=== PATIENT | male | born 1965 | race Caucasian/White ===

== ENCOUNTER 2016-03-10 19:32 | Emergency (ER) | payer MEDICARE, OTHER ==
--- NOTE | 2016-03-10 20:19 | ED Physician Documentation ---
General Adult - HISTORIAN Historian: patient, other (caretakers) - HPI Stated Complaint: right lower leg blister, swollen, painful Chief Complaint: General Adult Additional Information: Right leg red and swollen with blister. Care takers just noted this today. Patient says it everett sbeen there longer. Resident of [facility], a care home. Also has blisters on tongue. - ROS CONST: other (eating as usual). denies: fever - PAST HX Past History: other (DINO, Obese, Intermittent explosive disorder, seizures, hypothyrodi ) Allergies/Adverse Reactions: Allergies Allergy/AdvReac Type Severity Reaction Status Date / Time Penicillins Allergy Verified 03/10/16 19:57 Home Medications: Ambulatory Orders Medication Instructions Recorded Albuterol Sulfate [Proair HFA] 1 each D 04/05/15 Naproxen [Naprosyn] 500 mg D 04/05/15 Quetiapine Fumarate [Seroquel] 200 mg PO BID 04/05/15 Acetaminophen [Tylenol Extra 500 mg PO TID PRN 04/10/15 Strength] Albuterol Sulfate [Proair HFA] 2 inh IH QID PRN 04/10/15 Budesonide/Formoterol Fumarate 2 puff IH BID 04/10/15 [Symbicort 80-4.5 Mcg Inhaler] FLUoxetine HCL [Prozac] 20 mg PO QD 04/10/15 Lamotrigine [Lamictal] 200 mg PO BID 04/10/15 Levothyroxine Sodium [Levoxyl] 88 mcg PO 07 04/10/15 Loratadine [Claritin] 10 mg PO D 04/10/15 Mometasone Furoate [Nasonex] 17 gm NS D 04/10/15 Montelukast Sodium [Singulair] 10 mg PO D 04/10/15 Omeprazole [Prilosec] 40 mg PO D 04/10/15 - SOCIAL HX Smoking History: non-smoker - FAMILY HX Family History: No - VITAL SIGNS Vital Signs: Vital Signs Temp Pulse Resp BP Pulse Ox 97.7 F 110 H 16 110/70 94 03/10/16 19:42 03/10/16 19:42 03/10/16 19:42 03/10/16 19:42 03/10/16 19:42 - REVIEWED ASSESSMENTS Nursing Assessment Reviewed: Yes Vitals Reviewed: Yes ED Results Lab/Radiology - Orders Orders: ED Orders Category Date Time Status Place Saline Lock/IV Now Care 03/10/16 19:54 Active BLOOD CULTURE Stat Lab 03/10/16 Ordered CBC/PLATELET/DIFF Routine Lab 03/10/16 20:11 Received CMP Routine Lab 03/10/16 20:10 Received PT-INR Routine Lab 03/10/16 20:10 Received URINALYSIS Routine Lab 03/10/16 Ordered General Adult Physical Exam - PHYSICAL EXAM GENERAL APPEARANCE: no distress EENT: eye inspection normal, ENT inspection normal, pharynx normal (Mallampati 3 /4), other (Erosions jama distal superior surface of tongue, 1-1.25 cm diameter. Foul smelling breath. ) NECK: supple RESPIRATORY: no resp distress, breath sounds normal CVS: reg rate & rhythm, heart sounds normal, equal pulses (feet) RECTAL: deferred SKIN: other (Right leg red, hot to touch, from 10 cm above knee to tips of toes. Serous fluid leaking from right lower leg. 6-3 cm blister mid ant right tibia. Denali peel textur of lower leg skin. ) EXTREMITIES: edema (see above) NEURO: CN's nml as tested, motor nml, sensation nml Discharge Clincal Impression: Cellulitis of right leg Home Medications: Ambulatory Orders Albuterol Sulfate [Proair HFA] 1 each D 04/05/15 Naproxen [Naprosyn] 500 mg D 04/05/15 Quetiapine Fumarate [Seroquel] 200 mg PO BID 04/05/15 Acetaminophen [Tylenol Extra Strength] 500 mg PO TID PRN 04/10/15 Albuterol Sulfate [Proair HFA] 2 inh IH QID PRN 04/10/15 Budesonide/Formoterol Fumarate [Symbicort 80-4.5 Mcg Inhaler] 2 puff IH BID FLUoxetine HCL [Prozac] 20 mg PO QD 04/10/15 Lamotrigine [Lamictal] 200 mg PO BID 04/10/15 Levothyroxine Sodium [Levoxyl] 88 mcg PO 07 04/10/15 Loratadine [Claritin] 10 mg PO D 04/10/15 Mometasone Furoate [Nasonex] 17 gm NS D 04/10/15 Montelukast Sodium [Singulair] 10 mg PO D 04/10/15 Omeprazole [Prilosec] 40 mg PO D 04/10/15 Condition: Fair Disposition: 02 XFER SHT-TRM HOSP Decision to Admit: NO Decision Time: 20:50
[2016-03-10 20:32] LABS: eGFR (African) > 60; eGFR (Non-African) > 60
[2016-03-10 20:37] LABS: BASOPHILS % 0.2 (0.0-1.5); EOSINOPHILS % 1.1 % (0.0-6.8); LYMPHOCYTES # 0.8 # k/uL (0.6-4.0); MEAN CORPUSCULAR HEMOGLOBIN 32.8 pg (28.0-34.0); MONOCYTES # 0.3 # k/uL (0.0-0.9); MONOCYTES % 2.1 % (0.0-11.0); NEUTROPHILS # 13.5 # k/uL (1.4-7.7)
[2016-03-10] MEDS ORDERED: cefTRIAXone SODIUM ADVANTAGE 1 GM in NORMAL SALINE ADD-VANTAGE 50 ML IV ONE (20:46)
[2016-03-10] MEDS ORDERED: cefTRIAXone SODIUM 1 GM VIAL ONE (20:50)
[2016-03-10] MEDS ORDERED: 0.9 % SODIUM CHLORIDE 100 ML IV ONE (20:50)
[2016-03-10] MEDS ORDERED: 0.9 % SODIUM CHLORIDE 1,000 ML IV ONE ×2 (20:55)
[2016-03-10 22:03] VITALS: BP 121/67
== END 2016-03-10 21:10 | disposition short-term general hospital (02) ==
LOC: ED 19:32
DX: L03.115 Cellulitis of right lower limb (principal)
CPT/HCPCS: 80053; 85025; 85610; J0696; J7030; 87040; 96365; 99283; 99284; S1016

== ENCOUNTER 2016-08-03 16:25 | Emergency (ER) | payer MEDICARE, OTHER ==
[2016-08-03 17:01] LABS: EOSINOPHILS % 0.1 % (0.0-6.8); MEAN CORPUSCULAR HEMOGLOBIN 32.1 pg (28.0-34.0); MEAN CORPUSCULAR VOLUME 96.3 fl (80.0-100.0); MONOCYTES % 4.8 % (0.0-11.0)
[2016-08-03] MEDS: MAG HYDROX/AL HYDROX/SIMETH 30 ML, Lidocaine 2%Visc 15ml 20 MG, PHENobarb/HYOSCY/ATROPI... PO ONE ×3 (17:10)
[2016-08-03] MEDS: ONDANSETRON HCL/PF 4 MG/ 2ML VIAL IVP ONE ×3 (17:10→20:10)
[2016-08-03] MEDS ORDERED: Lidocaine 2%Visc 15ml 20 MG/ML UDC ONE (17:12)
[2016-08-03] MEDS ORDERED: MAG HYDROX/AL HYDROX/SIMETH 30 ML UDC PO ONE (17:12)
[2016-08-03] MEDS ORDERED: 0.9 % SODIUM CHLORIDE 1,000 ML IV ONE (17:13)
[2016-08-03 17:17] LABS: eGFR (African) > 60; eGFR (Non-African) > 60
[2016-08-03] MEDS: 0.9 % SODIUM CHLORIDE 1,000 ML IV SCH (17:20)
[2016-08-03 17:28] LABS: BASOPHILS % 0.1 (0.0-1.5)
--- NOTE | 2016-08-03 17:47 | Diagnostic Imaging Report ---
MARIA DOLORES TAVERAS [facility] [address] [facility] [address] [place], [place]. [address] Report Submission Date: Aug 03, 2016 5:33:54 PM CDT Patient Study Name: ALCIDES MEZA Date: Aug 03, 2016 5:09:39 PM CDT Modality Type: CR Gender: M Description: CHEST,ABDOMEN : 65 Institution: [facility] Physician: MARIA DOLORES TAVERAS Chest and obstructive series, total 4 views Clinical history: Chest and abdominal pain Mild cardiomegaly with bibasilar discoid atelectasis. mild colonic ileus without dilated small bowel loops or free air. Impression: Mild cardiomegaly with bibasilar atelectasis and possibly small bibasilar infiltrates Mild colonic ileus without dilated small bowel loops No free air Electronically signed on Aug 03, 2016 5:33:54 PM CDT by: Kenneth FIERRO
[2016-08-03] MEDS: fentaNYL CITRATE/PF 100 MCG/ 2ML AMP IVP ONE (18:24)
[2016-08-03] MEDS: fentaNYL 50 MCG PATCH TD SCH (20:11)
--- NOTE | 2016-08-03 20:16 | ED Physician Documentation ---
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 denies: joint pain, leg swelling, rash, swollen glands - SOCIAL HX Smoking History: non-smoker Alcohol Use: none Drug Use: none - FAMILY HX Family History: no significant history - PAST HX Past History: other (mild mental retaardation gerd hypothryoid seizures asthma gerrd ) Surgeries/Procedures: other (hernia) - REVIEWED ASSESSMENTS Nursing Assessment Reviewed: Yes Vitals Reviewed: Yes <Enmanuel Webster - Last Filed: 08/03/16 19:18> - HPI Stated Complaint: abd pain Context: other (none) <Monico Villegas - Last Filed: 08/03/16 20:15> - HPI Additonal Information: abd pain n/e onset last noct ate at [employer] yesterday w/hx over eating frequently claims no bm today or yesterday (Enmanuel Webster) - PAST HX Home Medications: Ambulatory Orders Medication Instructions Recorded Albuterol Sulfate [Proair HFA] 1 each D 04/05/15 Naproxen [Naprosyn] 500 mg D 04/05/15 Quetiapine Fumarate [Seroquel] 200 mg PO BID 04/05/15 Acetaminophen [Tylenol Extra 500 mg PO TID PRN 04/10/15 Strength] Albuterol Sulfate [Proair HFA] 2 inh IH QID PRN 04/10/15 Budesonide/Formoterol Fumarate 2 puff IH BID 04/10/15 [Symbicort 80-4.5 Mcg Inhaler] FLUoxetine HCL [Prozac] 20 mg PO QD 04/10/15 Lamotrigine [Lamictal] 200 mg PO BID 04/10/15 Levothyroxine Sodium [Levoxyl] 88 mcg PO 07 04/10/15 Loratadine [Claritin] 10 mg PO D 04/10/15 Mometasone Furoate [Nasonex] 17 gm NS D 04/10/15 Montelukast Sodium [Singulair] 10 mg PO D 04/10/15 Omeprazole [Prilosec] 40 mg PO D 04/10/15 Allergies/Adverse Reactions: Allergies Allergy/AdvReac Type Severity Reaction Status Date / Time Penicillins Allergy Verified 08/03/16 17:10 - VITAL SIGNS Vital Signs: Vital Signs Temp Pulse Resp BP Pulse Ox 98.9 F 102 H 28 H 130/69 92 08/03/16 16:25 08/03/16 16:25 08/03/16 16:25 08/03/16 16:25 08/03/16 16:25 Progress <Enmanuel Webster - Last Filed: 08/03/16 19:18> - EKG/XRAY/CT EKG: NSR (HR=91; non-specific T-wave changes; possible LVH by voltage.) <Monico Villegas - Last Filed: 08/03/16 20:15> - Results/Orders Results/Orders: care mis ROYER 1948 hrs-report to him (Enmanuel Webster) - Progress Progress: pt lab came back hik wbc amylase dilated bowel loops-l;arge intestine-called DR CAMACHO she requested ct abdomen to r/o abscess et al---ordered (Enmanuel Webster) Chest and obstructive series, total 4 views: Mild cardiomegaly with bibasilar atelectasis and possibly small bibasilar infiltrates; Mild colonic ileus without dilated small bowel loops; No free air. CT abdomen: 1. Acute pancreatitis without evidence of peripancreatic loculated fluid collections or pancreatic necrosis. 2. Gallbladder distension and probable gallbladder wall thickening may indicate acute cholecystitis. 3. Probable right pericardial cyst. 4. Hepatomegaly. 5. Opacities in the lung bases may represent scarring, atelectasis, and/or pneumonia. There are also trace bilateral pleural effusions. In ER GI cocktail NS 1 L NS Zofran 4 mg IV x 2 Fentanyl 50 mcg x 2 Ancef 1 gm IV Transfer to Hosp. Dr. Reed. (Monico Villegas) Abdominal Pain Physical Exam - Physical Exam General Appearance: mild distress, moderate distress EENT: eye inspection normal NECK: normal inspection RESPIRATORY: no resp distress, breath sounds normal CVS: reg rate & rhythm, heart sounds normal ABDOMEN: soft, tenderness (mild generalized) SKIN: normal color. No: cyanosis, diaphoresis, jaundice EXTREMITIES: non-tender, normal range of motion (pt amb well on own) NEURO: oriented X3, motor nml, sensation nml, mood/affect nml, cognition normal (pts speect demeanor compatible w/ mild MR) <Enmanuel Webster - Last Filed: 08/03/16 19:18> Discharge <Enmanuel Webster - Last Filed: 08/03/16 19:18> Decision to Admit: NO Decision Time: 20:14 <Monico Villegas - Last Filed: 08/03/16 20:15> Clincal Impression: possible acute cholecystitis, possibe pneumonia, possible ileus, elevated wbc, elevated LFTs Pancreatitis Qualifiers: Chronicity: acute Pancreatitis type: unspecified pancreatitis type Acute pancreatitis complication: unspecified Qualified Code(s): K85.90 - Acute pancreatitis without necrosis or infection, unspecified Referrals: Kenneth Garner [Primary Care Provider] - 2 Days Home Medications: Ambulatory Orders Albuterol Sulfate [Proair HFA] 1 each D 04/05/15 Naproxen [Naprosyn] 500 mg D 04/05/15 Quetiapine Fumarate [Seroquel] 200 mg PO BID 04/05/15 Acetaminophen [Tylenol Extra Strength] 500 mg PO TID PRN 04/10/15 Albuterol Sulfate [Proair HFA] 2 inh IH QID PRN 04/10/15 Budesonide/Formoterol Fumarate [Symbicort 80-4.5 Mcg Inhaler] 2 puff IH BID FLUoxetine HCL [Prozac] 20 mg PO QD 04/10/15 Lamotrigine [Lamictal] 200 mg PO BID 04/10/15 Levothyroxine Sodium [Levoxyl] 88 mcg PO 07 04/10/15 Loratadine [Claritin] 10 mg PO D 04/10/15 Mometasone Furoate [Nasonex] 17 gm NS D 04/10/15 Montelukast Sodium [Singulair] 10 mg PO D 04/10/15 Omeprazole [Prilosec] 40 mg PO D 04/10/15 Condition: Stable Disposition: XFER SHT-TRM HOSP
[2016-08-03] MEDS: ceFAZolin SODIUM 1 GM in 0.9 % SODIUM CHLORIDE 50 ML IV ONE (20:21)
[2016-08-03 20:47] VITALS: BP 124/78
--- NOTE | 2016-08-04 03:50 | Diagnostic Imaging Report ---
MARIA DOLORES TAVERAS~ [facility] [address] [facility] [place], [place]. [address] ~ ~ ~ ~ Report Submission Date: Aug 03, 2016 7:15:39 PM CDT Patient ~ Study Name: ALCIDES MEZA ~ Date: Aug 03, 2016 6:46:04 PM CDT ~ Modality Type: CT\SR Gender: M ~ Description: CT ABD & PELVIS W/ CON : 65 ~ Institution: [facility] Physician: MARIA DOLORES TAVERAS ~ ~ ~ ~ HISTORY: ~ 51-year-old male with abdominal pain, possible pancreatitis. COMPARISON: Radiographs from earlier same day TECHNIQUE: ~Helical CT images of the abdomen and pelvis were performed with 87 ml Omnipaque IV contrast. ~Sagittal and coronal reformatted images were obtained. FINDINGS: CT abdomen: ~Probable right pericardial cyst. ~There are infiltrates in the lung bases, greater on the left. ~There are trace bilateral pleural effusions. ~ The gallbladder is distended with probable gallbladder wall thickening. ~There is a small amount of fluid around the pancreas, without evidence of pancreatic necrosis. ~No intra or extrahepatic biliary ductal dilatation. ~The liver to 21 cm cephalocaudal. ~The spleen, kidneys, and adrenal glands are unremarkable. ~ No abdominal aortic aneurysm. ~ CT pelvis: ~No abnormal bowel dilatation, free air, free fluid, or suspicious adenopathy. ~The appendix and urinary bladder are normal in appearance. ~There is lumbar degenerative disc disease and facet arthropathy. IMPRESSION: 1. ~Acute pancreatitis without evidence of peripancreatic loculated fluid collections or pancreatic necrosis. 2. ~Gallbladder distension and probable gallbladder wall thickening may indicate acute cholecystitis. 3. ~Probable right pericardial cyst. 4. ~Hepatomegaly. 5. ~Opacities in the lung bases may represent scarring, atelectasis, and/or pneumonia. ~There are also trace bilateral pleural effusions. ~ Electronically signed on Aug 03, 2016 7:15:39 PM CDT by: Abraham FIERRO
== END 2016-08-03 20:30 | disposition short-term general hospital (02) ==
LOC: ED 16:25
DX: K85.90 Acute pancreatitis without necrosis or infection, unspecified (principal)
CPT/HCPCS: 74022; 74177; 80053; 82150; 83880; 84484; 85025; 93005; A9270; J0690; J2405; J3010; J7030; Q9966; 96361; 96372; 96375; 96376; 99284; S1016

== ENCOUNTER 2017-07-18 21:47 | Emergency (ER) | payer MEDICARE, OTHER ==
[2017-07-18 22:21] LABS: BASOPHILS % 0.4 (0.0-1.5); MEAN CORPUSCULAR HEMOGLOBIN 31.7 pg (28.0-34.0); MEAN CORPUSCULAR VOLUME 99.3 fl (80.0-100.0); MONOCYTES % 4.1 % (0.0-11.0); NEUTROPHILS # 8.8 # k/uL (1.4-7.7)
[2017-07-18] MEDS ORDERED: KETOROLAC TROMETHAMINE 30 MG/1ML VIAL IVP ONE (22:22)
[2017-07-18 22:49] LABS: eGFR (African) > 60; eGFR (Non-African) > 60
--- NOTE | 2017-07-18 23:19 | ED Physician Documentation ---
Chest Pain - HISTORIAN Historian: patient - HPI Stated Complaint: chest pain Chief Complaint: Chest Pain Additional Information: left sided pectoral pain started today Onset: hours (5) Timing: sudden onset Duration: sudden-onset Last known Well Date: 07/18/17 Last Known Well Time: 05:00 Context: activity Severity: moderate Quality: aching Chest Pain Radiation: no radiation Chest Pain Signs/Symptoms: denies: nausea, vomiting, diaphoresis, cool extremities, dizziness, dyspnea, tachypnea, tachycardia, hypotension, palpitations, weakness Worsened By: movement Relieved By: nothing Further Comments: no - ROS CONST: none MS/LYMPH: none GI/: abdominal pain (left upper quadrant pain helped by pepto bismol) EYES/ENT: none SKIN/ENDO: none NEURO/PSYCH: none - PAST HX PR risk factors: no pertinent history DVT/PE Risk Factors: none TAD/AAA risk factors: none Neuro deficit: none GI disease: none Lung disease: asthma Immunizations: referred to PCP Allergies/Adverse Reactions: Allergies Allergy/AdvReac Type Severity Reaction Status Date / Time Penicillins Allergy Verified 07/18/17 22:59 Home Medications: Ambulatory Orders Medication Instructions Recorded Albuterol Sulfate [Proair HFA] 1 each D 04/05/15 Naproxen [Naprosyn] 500 mg D 04/05/15 Quetiapine Fumarate [Seroquel] 200 mg PO BID 04/05/15 Acetaminophen [Tylenol Extra 500 mg PO TID PRN 04/10/15 Strength] Albuterol Sulfate [Proair HFA] 2 inh IH QID PRN 04/10/15 Budesonide/Formoterol Fumarate 2 puff IH BID 04/10/15 [Symbicort 80-4.5 Mcg Inhaler] FLUoxetine HCL [Prozac] 20 mg PO QD 04/10/15 Lamotrigine [Lamictal] 200 mg PO BID 04/10/15 Levothyroxine Sodium [Levoxyl] 88 mcg PO 07 04/10/15 Loratadine [Claritin] 10 mg PO D 04/10/15 Mometasone Furoate [Nasonex] 17 gm NS D 04/10/15 Montelukast Sodium [Singulair] 10 mg PO D 04/10/15 Omeprazole [Prilosec] 40 mg PO D 02/29/16 - SOCIAL HX Smoking History: non-smoker Alcohol Use: none Drug Use: none - FAMILY HX Family HX: none - VITAL SIGNS Vital Signs: Vital Signs Temp Pulse Resp BP Pulse Ox 98.9 F 90 18 90/56 96 07/18/17 21:48 07/18/17 21:48 07/18/17 21:48 07/18/17 21:48 07/18/17 21:48 - REVIEWED ASSESSMENTS Nursing Assessment Reviewed: Yes Vitals Reviewed: Yes Progress - Results/Orders Results/Orders: bmp, cbc, trop, ekg ordered - Progress Progress: Pt. given 30 mg Toradol IVP in ER Critical Care Note - Critical Care Note Total Time (mins): 0 ED Results Lab/Radiology - Lab Results Lab Results: Lab Results 07/18/17 07/18/17 07/18/17 22:11 22:11 22:11 WBC 10.90 K/ul K/ul (4.00-12.00) RBC 3.87 M/ul L M/ul (3.90-5.20) Hgb 12.3 g/dL g/dL (12.0-18.0) Hct 38.4 % % (37.0-53.0) MCV 99.3 fl fl (80.0-100.0) MCH 31.7 pg pg (28.0-34.0) MCHC 31.9 g/dL g/dL (30.0-36.0) RDW 14.2 % % (11.3-14.3) Plt Count 458 K/mm3 H K/mm3 (130-400) Neut % (Auto) 80.5 % H % (39.0-79.0) Lymph % (Auto) 10.8 % L % (16.0-50.0) [place] % (Auto) 4.1 % % (0.0-11.0) Eos % (Auto) 3.0 % % (0.0-6.8) Baso % (Auto) 0.4 (0.0-1.5) Neut # (Auto) 8.8 # k/uL H # k/uL (1.4-7.7) Lymph # (Auto) 1.2 # k/uL # k/uL (0.6-4.0) [place] # (Auto) 0.4 # k/uL # k/uL (0.0-0.9) Eos # (Auto) 0.3 # k/uL # k/uL (0.0-0.6) Baso # (Auto) 0.0 # k/uL # k/uL (0.0-0.5) Reactive Lymphs % 1.2 % % (0.0-5.0) Reactive Lymphs # 0.1 # k/uL # k/uL (0.0-0.8) Sodium 138 mmol/L mmol/L (136-145) Potassium 3.7 mmol/L mmol/L (3.5-5.1) Chloride 102 mmol/L mmol/L (98-107) Carbon Dioxide 25 mmol/L mmol/L (22-30) BUN 17 mg/dL mg/dL (9-20) Creatinine 1.00 mg/dL mg/dL (0.66-1.25) Est GFR ( Amer) > 60 (60 - ) Est GFR (Non-Af Amer) > 60 (60 - ) Glucose 240 mg/dL H mg/dL (74-106) Calcium 9.0 mg/dL mg/dL (8.4-10.2) Troponin I < 0.03 ng/mL L ng/mL (0.03-0.06) - Radiology Radiology Impressions: none ordered - Orders Orders: ED Orders Category Date Time Status Continuous EKG monitoring Q30M Care 07/18/17 22:10 Active Continuous Pulse Oximetry Q30M Care 07/18/17 22:10 Active BMP Routine Lab 07/18/17 22:11 Completed CBC/PLATELET/DIFF Routine Lab 07/18/17 22:11 Completed TROPONIN I (cTnI) Stat Lab 07/18/17 22:11 Completed Ketorolac Tromethamine [Toradol] Med 07/18/17 22:22 Discontinued 30 mg IVP NOW ONE EKG WITH COMPARISON Stat Ther 07/18/17 22:10 Ordered Chest Pain Physical Exam - EXAM General Appearance: no acute distress, alert EENT: eye inspection normal, ENT inspection normal, pharynx normal, no signs of dehydration, SADA, no nystagmus, TM's nml Neck: nml inspection, no carotid bruit Respiratory: no resp. distress, other (left pectoral tenderness reproducing chest pain) CVS: reg. rate & rhythm, no murmur Abdomen: soft, no organomegaly, normal bowel sounds, no abdominal bruit, no distension, non-tender Skin: warm/dry, normal color Extremities: non-tender, normal range of motion, no evidence of injury, no edema Neuro: oriented X3, CN's nml as tested, motor nml, sensation nml, mood/affect nml, cognition normal Discharge Clincal Impression: Costochondritis Referrals: Kenneth Garner [Primary Care Provider] - 2 Days Comments: Pt. discharged to care of care home in stable and improved condition. No new medications. Condition: Stable Disposition: 01 HOME, SELF-CARE Decision to Admit: NO Decision Time: 23:17
[2017-07-18 23:36] VITALS: BP 117/59
== END 2017-07-18 23:30 | disposition home or self-care (01) ==
LOC: ED 21:47
DX: M94.0 Chondrocostal junction syndrome [Tietze] (principal)
CPT/HCPCS: 80048; 84484; 85025; 96374; 99284

== ENCOUNTER 2017-08-06 18:21 | Emergency (ER) | payer MEDICARE, OTHER ==
--- NOTE | 2017-08-06 19:28 | ED Physician Documentation ---
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 No bowel movement for 4 days. Treated for pneumonia last week and has completed antibiotics. Says he is not burping or passing gas. Has RUQ cramping pain. - ROS CONST: denies: fever - PAST HX Past History: other (MR, recent pneumonia) Allergies/Adverse Reactions: Allergies Allergy/AdvReac Type Severity Reaction Status Date / Time Penicillins Allergy Verified 08/06/17 18:57 Home Medications: Ambulatory Orders Medication Instructions Recorded Albuterol Sulfate [Proair HFA] 1 each D 04/05/15 Naproxen [Naprosyn] 500 mg D 04/05/15 Quetiapine Fumarate [Seroquel] 200 mg PO BID 04/05/15 Acetaminophen [Tylenol Extra 500 mg PO TID PRN 04/10/15 Strength] Albuterol Sulfate [Proair HFA] 2 inh IH QID PRN 04/10/15 Budesonide/Formoterol Fumarate 2 puff IH BID 04/10/15 [Symbicort 80-4.5 Mcg Inhaler] FLUoxetine HCL [Prozac] 20 mg PO QD 04/10/15 Lamotrigine [Lamictal] 200 mg PO BID 04/10/15 Levothyroxine Sodium [Levoxyl] 88 mcg PO 07 04/10/15 Loratadine [Claritin] 10 mg PO D 04/10/15 Mometasone Furoate [Nasonex] 17 gm NS D 04/10/15 Montelukast Sodium [Singulair] 10 mg PO D 04/10/15 Omeprazole [Prilosec] 40 mg PO D 04/10/15 - SOCIAL HX Smoking History: non-smoker - FAMILY HX Family History: No - VITAL SIGNS Vital Signs: Vital Signs Temp Pulse Resp BP Pulse Ox 98.3 F 88 18 125/76 100 08/06/17 18:25 08/06/17 18:25 08/06/17 18:25 08/06/17 18:25 08/06/17 18:25 - REVIEWED ASSESSMENTS Nursing Assessment Reviewed: Yes Vitals Reviewed: Yes Progress - Progress Progress: Report Submission Date: Aug 06, 2017 7:47:10 PM CDT Patient Study Name: ALCIDES MEZA Date: Aug 06, 2017 7:13:23 PM CDT Modality Type: DX Gender: M Description: ABDOMEN,CHEST : 65 Institution: [facility] Physician: TAMIKA LOVELACE - ER Abdomen series with chest radiograph HISTORY Constipation. FINDINGS Included chest radiograph demonstrates cardiomegaly but no active disease. Bowel gas pattern is grossly normal. There is no obstruction, free intraperitoneal air or pathologic calcification. IMPRESSION Grossly normal bowel gas pattern. Electronically signed on Aug 06, 2017 7:47:10 PM CDT by: Archie Donahue ED Results Lab/Radiology - Orders Orders: ED Orders Category Date Time Status ABD SERIES PA CHEST [RAD] Stat Exams 08/06/17 Ordered CBC/PLATELET/DIFF Routine Lab 08/06/17 Ordered CMP Routine Lab 08/06/17 Ordered URINALYSIS Routine Lab 08/06/17 Ordered General Adult Physical Exam - PHYSICAL EXAM GENERAL APPEARANCE: obese EENT: eye inspection normal, pharynx normal NECK: normal inspection, supple RESPIRATORY: no resp distress, breath sounds normal CVS: reg rate & rhythm, heart sounds normal ABDOMEN: soft, normal bowel sounds, non-tender, other (moves about freely on stretcher w/o discomfort) BACK: normal inspection, no CVA tenderness, other (no vertebral tenderness) SKIN: warm/dry, normal color EXTREMITIES: normal range of motion, no evidence of injury NEURO: CN's nml as tested, motor nml, sensation nml Discharge Clincal Impression: Constipation Referrals: Kenneth Garner [Primary Care Provider] - 2 Days Additional Instructions: Your labs and x rays were reassuring. Drink more water. Drink half the bottle of mag citrate over ice when you get home. If you have not had an adequate bowel movement in two hours, drink the second half of the bottle over ice. Follow up with your provider tomorrow. Condition: Good Disposition: 01 HOME, SELF-CARE Decision to Admit: NO Decision Time: 20:10
[2017-08-06 19:56] LABS: BASOPHILS % 0.3 (0.0-1.5); EOSINOPHILS % 2.1 % (0.0-6.8); MEAN CORPUSCULAR HEMOGLOBIN 32.4 pg (28.0-34.0); MEAN CORPUSCULAR VOLUME 98.4 fl (80.0-100.0); MONOCYTES % 6.3 % (0.0-11.0); NEUTROPHILS # 10.8 # k/uL (1.4-7.7)
[2017-08-06 20:06] LABS: eGFR (African) > 60; eGFR (Non-African) > 60
[2017-08-06] MEDS ORDERED: MAGNESIUM CITRATE 296 ML BOTTLE PO ONE (20:14)
[2017-08-06 23:03] VITALS: BP 122/74
--- NOTE | 2017-08-07 06:46 | Diagnostic Imaging Report ---
TAMIKA LOVELACE [facility] [address] [facility] [address] [address] Report Submission Date: Aug 06, 2017 7:47:10 PM CDT Patient Study Name: ALCIDES MEZA Date: Aug 06, 2017 7:13:23 PM CDT Modality Type: DX Gender: M Description: ABDOMEN,CHEST : 65 Institution: [facility] Physician: TAMIKA LOVELACE Abdomen series with chest radiograph HISTORY Constipation. FINDINGS Included chest radiograph demonstrates cardiomegaly but no active disease. Bowel gas pattern is grossly normal. There is no obstruction, free intraperitoneal air or pathologic calcification. IMPRESSION Grossly normal bowel gas pattern. Electronically signed on Aug 06, 2017 7:47:10 PM CDT by: Archie FIERRO
== END 2017-08-06 20:20 | disposition home or self-care (01) ==
LOC: ED 18:21
DX: K59.00 Constipation, unspecified (principal)
CPT/HCPCS: 74022; 80053; 85025; 99284

== ENCOUNTER 2017-09-14 12:15 | Emergency (ER) | payer MEDICARE, OTHER ==
[2017-09-14] MEDS ORDERED: LORazepam 2 MG/ML VIAL ONE (12:29)
[2017-09-14] MEDS ORDERED: ONDANSETRON HCL 4 MG TAB.RAPDIS PO ONE (13:00)
[2017-09-14] MEDS ORDERED: ONDANSETRON HCL 4 MG TAB.RAPDIS ONE (13:02)
[2017-09-14] MEDS ORDERED: HALOPERIDOL LACTATE 5 MG/ML VIAL IM ONE ×3 (13:58→14:04)
--- NOTE | 2017-09-14 14:04 | ED Physician Documentation ---
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 Pt was dry heaving and later was trying to cough. Pt is a poor historian. He c/o stomach hurting.) - ROS CONST: other (Pt is a poor historian and cannot give ROS.) - PAST HX Past History: other (Mental disability/psych d/o; seizure d/o; hypothyroidism; HTN; DM; GERD; Asthma; DINO on bipap; environ allergies.) Allergies/Adverse Reactions: Allergies Allergy/AdvReac Type Severity Reaction Status Date / Time Penicillins Allergy Verified 09/14/17 14:47 Home Medications: Ambulatory Orders Medication Instructions Recorded Albuterol Sulfate [Proair HFA] 1 each D 04/05/15 Naproxen [Naprosyn] 500 mg D 04/05/15 Quetiapine Fumarate [Seroquel] 100 mg PO BID 04/05/15 Acetaminophen [Tylenol Extra 500 mg PO TID PRN 04/10/15 Strength] Albuterol Sulfate [Proair HFA] 2 inh IH QID PRN 04/10/15 Budesonide/Formoterol Fumarate 2 puff IH BID 04/10/15 [Symbicort 80-4.5 Mcg Inhaler] FLUoxetine HCL [Prozac] 20 mg PO QD 04/10/15 Lamotrigine [Lamictal] 250 mg PO BID 04/10/15 Levothyroxine Sodium [Levoxyl] 88 mcg PO 07 04/10/15 Loratadine [Claritin] 10 mg PO D 04/10/15 Mometasone Furoate [Nasonex] 17 gm NS D 04/10/15 Montelukast Sodium [Singulair] 10 mg PO HS 04/10/15 Omeprazole [Prilosec] 40 mg PO D 04/10/15 Ciprofloxacin HCl [Cipro] 500 mg PO Q12H #20 tablet 09/14/17 Lisinopril [Prinivil] 5 mg PO QD 09/14/17 Metformin HCl [Glucophage] [place] [address] 09/14/17 Metronidazole 500 mg PO Q8H #30 tablet 09/14/17 Ranitidine HCl [Heartburn Relief] 150 mg PO BID 09/14/17 Topiramate [Topamax] 100 mg PO HS 09/14/17 - SOCIAL HX Smoking History: other (unk hx) - FAMILY HX Family History: No - VITAL SIGNS Vital Signs: Vital Signs Temp Pulse Resp BP Pulse Ox 97.9 F 20 82/59 09/14/17 12:16 09/14/17 12:16 09/14/17 12:16 - REVIEWED ASSESSMENTS Nursing Assessment Reviewed: Yes Vitals Reviewed: Yes Progress - Progress Progress: Zofran 4 mg ODT Ativan 2 mg IM for agitation Haldol 5 mg IM temporary restraints in ER. Pt no longer agitated after Haldol. Pt incontinent of diarrheal stool in ER. NS 1 L IVF KUB: Normal bowel gas pattern. CXR: Findings: There is widening of the upper mediastinum. This is a new finding since 06 August 2017. There is atelectasis in the left lower lobe. The heart is enlarged. Pulmonary vascularity is normal. Impression: Left lower lobe atelectasis. Widened mediastinum. This is a new finding and computed tomography is recommended for further evaluation. CT chest: There is mild pulmonary vascular congestion. There is no pleural effusion or pneumothorax. There is no pulmonary mass or nodule. The heart is enlarged. There is a 15 mm x 25 mm pericardial cyst at the right heart border. Mediastinum otherwise appears grossly normal. There is no adenopathy. Included portions of upper abdomen demonstrate cholecystectomy changes. There is a small hiatal hernia. Impression: Cardiomegaly and pulmonary vascular congestion. Pericardial cyst at the right heart border. Small hiatal hernia. D/C Rx Ciprofloxacin 500 mg. Take one every 12 hours for 10 days. 1st dose in ER. Rx Metronidazole 500 mg. Take one every 8 hours for 10 days. 1st dose in ER. ED Results Lab/Radiology - Orders Orders: ED Orders Category Date Time Status ABDOMEN 1VIEW [RAD] Stat Exams 09/14/17 13:40 Ordered CHEST 2VIEW [RAD] Stat Exams 09/14/17 Ordered Haloperidol Lactate [Haldol] Med 09/14/17 13:58 Discontinued 5 mg IM .STK-MED ONE Haloperidol Lactate [Haldol] Med 09/14/17 13:59 Discontinued 5 mg IM NOW ONE LORazepam [Ativan] Med 09/14/17 12:29 Discontinued 2 mg .ROUTE .STK-MED ONE Ondansetron HCl Rapdis [Zofran Odt] Med 09/14/17 13:02 Discontinued 4 mg .ROUTE .STK-MED ONE General Adult Physical Exam - PHYSICAL EXAM GENERAL APPEARANCE: moderate distress (obese, agitated, non-cooperative) EENT: dry mucous membranes NECK: normal inspection, supple RESPIRATORY: chest non-tender, breath sounds normal, rhonchi CVS: reg rate & rhythm, heart sounds normal ABDOMEN: soft, tenderness (diffuse abd tenderness), decreased BS BACK: normal inspection, no CVA tenderness SKIN: warm/dry, normal color EXTREMITIES: non-tender, normal range of motion, no evidence of injury NEURO: motor nml, sensation nml, other (agitated, pt with mental d/o, mr) Discharge Clincal Impression: abd pain, Gastroenteritis Prescriptions: Ciprofloxacin HCl [Cipro] 500 mg PO Q12H #20 tablet Metronidazole 500 mg PO Q8H #30 tablet Referrals: Laney Doan [Primary Care Provider] - Condition: Stable Disposition: 01 HOME, SELF-CARE Decision to Admit: NO Decision Time: 17:15
[2017-09-14] MEDS ORDERED: LORazepam 2 MG/ML VIAL IM ONE (14:05)
[2017-09-14] MEDS ORDERED: 0.9 % SODIUM CHLORIDE 1,000 ML IV ONE ×2 (14:28→14:32)
[2017-09-14 14:48] LABS: BASOPHILS % 0.1 (0.0-1.5); EOSINOPHILS % 0.2 % (0.0-6.8); MEAN CORPUSCULAR HEMOGLOBIN 32.7 pg (28.0-34.0); MEAN CORPUSCULAR VOLUME 102.5 fl (80.0-100.0); MONOCYTES % 1.7 % (0.0-11.0); NEUTROPHILS # 15.9 # k/uL (1.4-7.7)
[2017-09-14 15:22] LABS: eGFR (African) > 60; eGFR (Non-African) > 60
--- NOTE | 2017-09-14 16:32 | Diagnostic Imaging Report ---
[facility] [address] [facility].[address] [address] Report Submission Date: Sep 14, 2017 2:31:27 PM CDT Patient Study Name: ALCIDES MEZA Date: Sep 14, 2017 1:37:06 PM CDT Modality Type: DX Gender: M Description: ABDOMEN : 65 Institution: [facility] Physician: JOS RIOS Abdomen series History: Abdominal pain Findings: The bowel gas pattern is normal. There is no obstruction pathologic calcification. Impression: Normal bowel gas pattern. Electronically signed on Sep 14, 2017 2:31:27 PM CDT by: Archie FIERRO
--- NOTE | 2017-09-14 16:33 | Diagnostic Imaging Report ---
[facility] [address] [facility].[address] [address] Report Submission Date: Sep 14, 2017 3:26:30 PM CDT Patient Study Name: ALCIDES MEZA Date: Sep 14, 2017 2:54:23 PM CDT Modality Type: DX Gender: M Description: CHEST : 65 Institution: [facility] Physician: JOS RIOS Chest, AP portable History: Followup abnormal chest radiograph Findings: There is widening of the upper mediastinum. This is a new finding since 06 August 2017. There is atelectasis in the left lower lobe. The heart is enlarged. Pulmonary vascularity is normal. Impression: Left lower lobe atelectasis. Widened mediastinum. This is a new finding and computed tomography is recommended for further evaluation. Electronically signed on Sep 14, 2017 3:26:30 PM CDT by: Archie FIERRO
[2017-09-14] MEDS ORDERED: CIPROFLOXACIN HCL 500 MG TABLET PO ONE (16:40)
[2017-09-14] MEDS ORDERED: metroNIDAZOLE 500 MG TABLET PO ONE (16:41)
--- NOTE | 2017-09-14 16:51 | Diagnostic Imaging Report ---
[facility] [address] [facility] [address], [place]. [address] Report Submission Date: Sep 14, 2017 4:36:30 PM CDT Patient Study Name: ALCIDES MEZA Date: Sep 14, 2017 4:08:40 PM CDT Modality Type: CT\SR Gender: M Description: CT CHEST W/ CONTRAST : 65 Institution: [facility] Physician: JOS RIOS CT chest with intravenous contrast History: Followup abnormal chest radiograph, wide mediastinum. Technique: Images through the chest were obtained following intravenous contrast administration. Findings: There is mild pulmonary vascular congestion. There is no pleural effusion or pneumothorax. There is no pulmonary mass or nodule. The heart is enlarged. There is a 15 mm x 25 mm pericardial cyst at the right heart border. Mediastinum otherwise appears grossly normal. There is no adenopathy. Included portions of upper abdomen demonstrate cholecystectomy changes. There is a small hiatal hernia. Impression: Cardiomegaly and pulmonary vascular congestion. Pericardial cyst at the right heart border. Small hiatal hernia. Electronically signed on Sep 14, 2017 4:36:30 PM CDT by: Archie FIERRO
[2017-09-14 17:19] VITALS: BP 126/81
== END 2017-09-14 17:10 | disposition home or self-care (01) ==
LOC: ED 12:15
DX: R10.9 Unspecified abdominal pain (principal); K52.9 Noninfective gastroenteritis and colitis, unspecified
CPT/HCPCS: 71045; 71260; 74018; 80053; 83690; 85025; A9270; J1630; J2060; J7030; 71046; 96365; 96375; 99284; Q9967; S1016

== ENCOUNTER 2018-03-09 12:14 | Outpatient (CLI) | payer MEDICARE, OTHER ==
[2018-03-09 14:21] LABS: APPEARANCE,URINE CLEAR (CLEAR); COLOR,URINE YELLOW (YELLOW); OCCULT BLOOD,URINE TRACE-INTACT (NEGATIVE); UROBILINOGEN URINE 0.2 Eu (0.2-1.0)
--- NOTE | 2018-03-09 16:09 | Diagnostic Imaging Report ---
Report Submission Date: Mar 09, 2018 1:59:52 PM [employer]STRUCTION [employer] Patient Study Name: ALCIDES MEZA Date: Mar 10, 2018 4:43:22 AM CONSTRUCTION [employer]ER Modality Type: DX Gender: M Description: CHEST 2 VIEW : 65 Institution: [facility] Physician: AMARILYS HERNANDEZ Examination: Portable chest History: Evaluate lungs. COUGH. NON-SMOKER Comparison exam: None available for direct review. Findings: Single view of the chest demonstrates enlarged cardiac silhouette. Chronic interstitial changes. Lung hyatt without focal infiltrate. No blunting of the costophrenic margins. Osseous structures are appropriate for age. Impression: Chronic interstitial changes. No acute pulmonary process. Cardiomegaly. Electronically signed on Mar 09, 2018 1:59:52 PM CONSTRUCTION PRODUCER by: Curtis Cotton Correction Examination: PA and lateral chest History: Evaluate lungs. COUGH. NON-SMOKER Comparison exam: None available for direct review. Findings: Two views of the chest demonstrates enlarged cardiac silhouette. Chronic interstitial changes. Lung hyatt without focal infiltrate. No blunting of the costophrenic margins. Osseous structures are appropriate for age. Impression: Chronic interstitial changes. No acute pulmonary process. Cardiomegaly. Addendum electronically signed by Curtis Cotton on March 09, 2018 3:25:15 PM CONSTRUCTION PRODUCER MTDD
== END 2018-03-09 12:16 ==
LOC: LAB 12:14
PROVIDERS: ATTEND Nurse Practitioner Family
DX: R30.0 Dysuria (principal); D72.9 Disorder of white blood cells, unspecified; R10.9 Unspecified abdominal pain
CPT/HCPCS: 36415; 71046; 81002; 82150; 83690

== ENCOUNTER 2018-12-21 20:38 | Emergency (ER) | payer MEDICARE, OTHER ==
--- NOTE | 2018-12-21 20:51 | ED Physician Documentation ---
General Adult - HISTORIAN Historian: patient - HPI Stated Complaint: right index finger laceration Chief Complaint: Laceration/Recheck/Suture Additional Information: Patient presents to ED with 1cm x 1cm flap laceration to right index finger. Patient states he was cutting paper with scissors when he cut his finger. It is not clear when he had his last tetanus. Onset: hours (2) Timing: still present Severity: moderate - ROS CONST: denies: fever EYES/ENT: none CVS/RESP: denies: chest pain, shortness of breath GI/: denies: vomiting, nausea MS/SKIN/LYMPH: none NEURO/PSYCH: denies: headache - PAST HX Past History: denies: none Other History: denies: none Surgeries/Procedures: denies: none Allergies/Adverse Reactions: Allergies Allergy/AdvReac Type Severity Reaction Status Date / Time Penicillins Allergy Verified 12/21/18 21:22 Home Medications: Ambulatory Orders Medication Instructions Recorded Carbamazepine [Carbamazepine ER] 200 mg PO BID 12/21/18 FLUoxetine HCL [Prozac] 20 mg PO QD 12/21/18 Fluticasone Furoate [Arnuity 50 mcg IH BID 12/21/18 Ellipta] Lamotrigine [Lamictal] 200 mg PO BID 12/21/18 Levothyroxine Sodium 88 mcg PO ONCE 12/21/18 Lisinopril 5 mg PO DAILY 12/21/18 Loratadine 10 mg PO DAILY 12/21/18 Metformin HCl 1,000 mg PO BID 12/21/18 Montelukast Sodium [Singulair] 10 mg PO HS 12/21/18 Polyethylene Glycol 3350 [Miralax] 17 gm PO TID 12/21/18 Quetiapine Fumarate 300 mg PO HS 12/21/18 Ranitidine HCl 150 mg PO BID 12/21/18 Topiramate [Topamax] 100 mg PO HS 12/21/18 - SOCIAL HX Smoking History: non-smoker Alcohol Use: none Drug Use: none - FAMILY HX Family History: No - VITAL SIGNS Vital Signs: Vital Signs Temp Pulse Resp BP Pulse Ox 98.2 F 87 18 119/80 98 12/21/18 20:38 12/21/18 20:38 12/21/18 20:38 12/21/18 20:38 12/21/18 20:38 - REVIEWED ASSESSMENTS Nursing Assessment Reviewed: Yes Vitals Reviewed: Yes Procedures Wound Location: upper extremity (right index finger) Wound's Depth, Shape: superficial, flap Wound Explored: clean Anesthesia: 1% Lidocaine Volume of Anesthetic: 10 Wound Debrided: minimal Wound Repaired With: sutures Suture Size/Type: 4:0 Number of Sutures: 3 Layer Closure?: No Sterile Dressing Applied?: Yes Splint Applied?: No Sling Applied?: No ED Results Lab/Radiology - Orders Orders: ED Orders Category Date Time Status Apply/change dressing QID Care 12/21/18 21:25 Ordered Cleanse with NS and Chlorhexid 1T Care 12/21/18 21:00 Active Diph,Pertuss(Acell),Tet Vac/Pf [Adacel] Med 12/21/18 20:52 Discontinued 0.5 ml IM .ONCE ONE Lidocaine 1% 5ml [Xylocaine] Med 12/21/18 20:52 Discontinued 50 mg IM NOW ONE Lidocaine 1% 5ml [Xylocaine] Med 12/21/18 20:59 Discontinued 50 mg IM NOW ONE General Adult Physical Exam - PHYSICAL EXAM GENERAL APPEARANCE: no distress EENT: SADA NECK: supple RESPIRATORY: no resp distress, chest non-tender, breath sounds normal CVS: reg rate & rhythm, heart sounds normal ABDOMEN: soft, normal bowel sounds, non-tender BACK: normal inspection SKIN: warm/dry, normal color, other (1cm x 1cm flap laceration to anterior right index finger) EXTREMITIES: non-tender, no evidence of injury NEURO: oriented X3, motor nml, mood/affect nml Discharge Clincal Impression: Laceration of right index finger w/o foreign body w/o damage to nail Qualifiers: Encounter type: initial encounter Qualified Code(s): S61.210A - Laceration without foreign body of right index finger without damage to nail, initial encounter Referrals: Laney Doan [Primary Care Provider] - 2 Days Additional Instructions: 1. Wash laceration twice daily with soap. Pat dry immediately. Apply triple antibiotic ointment, cover with band-aid 2. Keep laceration dry. No swimming, washing dishes or baths. Shower ok 3. Follow up with PCP in 10 days for suture removal 4. Return to ER for new or worsening symptoms Condition: Stable Disposition: 01 HOME, SELF-CARE Decision to Admit: NO Date of Decison to Admit: 12/21/18 Decision Time: 21:28
[2018-12-21] MEDS: Lidocaine 1% 5ml 10 MG/ML VIAL IM ONE ×2 (21:00)
[2018-12-21] MEDS: DIPH,PERTUSS(ACELL),TET VAC/PF 0.5 ML DISP.SYRIN IM ONE (21:18)
[2018-12-21 21:47] VITALS: BP 125/79
== END 2018-12-21 21:30 | disposition home or self-care (01) ==
LOC: ED 20:38
DX: S61.210A Laceration without foreign body of right index finger without damage to nail, initial encounter (principal); W27.2XXA Contact with scissors, initial encounter; Y93.89 Activity, other specified
CPT/HCPCS: 12001; 90471; 90715; 96372; 99282; 99284

== ENCOUNTER 2018-12-25 09:02 | Outpatient (CLI) | payer MEDICARE, OTHER ==
[2018-12-25 09:27] LABS: BASOPHILS % 0.4 % (0.0-1.5); NEUTROPHILS # 3.9 # k/uL (1.4-7.7)
[2018-12-25 09:57] LABS: HDL 43 mg/dL (>40); eGFR (Non-African) > 60
[2018-12-28 07:51] LABS: A1C 5.5 % (<5.7)
== END 2018-12-25 09:07 ==
LOC: LAB 09:02
PROVIDERS: ATTEND Nurse Practitioner Family
DX: E11.9 Type 2 diabetes mellitus without complications (principal); E78.2 Mixed hyperlipidemia; R35.1 Nocturia
CPT/HCPCS: 36415; 80053; 80061; 83036; 84153; 85025